=== PATIENT | male | born 1955 | race African-American/Black ===

== ENCOUNTER 2018-05-26 12:09 | Emergency (ER) | payer SELFPAY ==
[2018-05-26] MEDS ORDERED: Morphine 4 MG/ML VIAL ONE (17:25)
[2018-05-26 17:37] LABS: Hemoglobin 13.6 g/dL (14.0-18.0); Mean Corpuscular HGB CONC 32.9 g/dL (32.0-36.0); Mean Corpuscular Hemoglobin 30.5 pg (27.0-31.0); Mean Corpuscular Volume 92.5 fL (78.0-98.0); Mean Platelet Volume 7.6 fL (7.4-10.4); Platelet Count 257 thou/uL (130-400); RBC Distribution Width 13.2 % (11.5-14.5); Red Blood Cell (RBC) Count 4.46 mill/uL (4.70-6.10)
[2018-05-26 17:42] LABS: ALT (SGPT) 70 U/L (8-55); AST (SGOT) 84 U/L (5-34); Albumin 3.6 g/dL (3.4-4.8); Alkaline Phosphatase 78 U/L (40-150); Anion Gap 13 mmol/L (10-20); BUN (Urea Nitrogen) 13 mg/dL (8.4-25.7); Bilirubin, Total 0.4 mg/dL (0.2-1.2); Calc. Creatinine Clearance 0 mL/min (70-130); Calcium 9.3 mg/dL (7.8-10.44); Carbon Dioxide 21 mmol/L (23-31); Chloride 107 mmol/L (98-107); Estimated GFR-MDRD Greater than 90; Globulin 4.9 g/dL (2.4-3.5); Glucose 87 mg/dL (80-115); Potassium 4.4 mmol/L (3.5-5.1); Protein, Total 8.5 g/dL (5.8-8.1); Sodium 137 mmol/L (136-145)
[2018-05-26 17:58] LABS: Anisocytosis SLIGHT = 6-15 cells (100X) (0-5/hpf); Band 2 % (5-11); Hypochromia SLIGHT = 6-15 cells (100X) (0-5/hpf); Lymphocytes 47 % (21-51); MDiff Complete? YES; Monocytes 10 % (0-10); Neutrophil 41 % (42-75); Platelet Morphology Comment Appears Adequate; Target Cells SLIGHT = 2-5 cells (100X) (0-1/hpf)
--- NOTE | 2018-05-26 19:18 | CT ---
CT ABDOMEN WITH CONTRAST CT PELVIS WITH CONTRAST: DATE: 05/26/18 at 5:59 p.m. HISTORY: 62-year-old male with generalized abdominal pain. COMPARISON: None available. TECHNIQUE: IV injection of iodinated contrast media: Isovue Oral contrast media: Not administered FINDINGS: No consolidation or pleural effusion at lung bases. Spleen is absent. Several surgical clips in the l eft upper quadrant of abdominal cavity posteriorly. 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 No acut e pancreatitis or pancreatic mass. Gas filled duodenal diverticulum at proximal third stage. Normal r ight kidney. No abdominal aortic aneurysm. No focal hepatic solid or cystic mass identified. No small bowel dilation. Normal, thin ornelas of urinary bladder. Right inguinal fat-containing hernia (without bowel loop) has mixed fatty and soft tissue density irregular material. This causes a bulge of the s kin surface of the right inguinal region. No colonic diverticulitis. No small bowel dilation. No pneu moperitoneum or ascites. IMPRESSION: 1. Fat-containing right inguinal hernia which also contains a moderate amount of irregularly sha ped soft tissue density material within the hernia sac, which may or may not represent edema. Etiolog y is uncertain. Possibilities include ischemia or hemorrhage of the herniated mesenteric fat within t he sac. 2. No other potentially acute findings. 3. 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 FERNY Acevedo POS: DORY
== END 2018-05-26 20:04 | disposition home or self-care (01) ==
LOC: ERS 12:09
DX: K40.90 Unilateral inguinal hernia, without obstruction or gangrene, not specified as recurrent (principal); F17.210 Nicotine dependence, cigarettes, uncomplicated; Z79.899 Other long term (current) drug therapy
CPT/HCPCS: 36415; 74177; 80053; 85025; 96361; 96374; J2270

== ENCOUNTER 2021-11-04 20:32 | Emergency (ER) | payer OTHER, SELFPAY ==
[2021-11-04] MEDS ORDERED: Ketorolac Tromethamine 30 MG/ML VIAL ONE (22:15)
[2021-11-04] MEDS ORDERED: predniSONE 20 MG TAB ONE (22:15)
== END 2021-11-04 23:03 | disposition home or self-care (01) ==
LOC: ERS 20:32
DX: M19.011 Primary osteoarthritis, right shoulder (principal); K21.9 Gastro-esophageal reflux disease without esophagitis; F17.210 Nicotine dependence, cigarettes, uncomplicated
CPT/HCPCS: 96372; J1885; J7512